=== PATIENT | female | born 1995 | race Caucasian/White ===

== ENCOUNTER 2018-03-16 15:31 | Outpatient (CLI) | payer MEDICAID ==
--- NOTE | 2018-03-16 16:27 | ULT ---
TRANSABDOMINAL PELVIC ULTRASOUND WITH ECHEVARRIA SCALE, COLOR FLOW, AND SPECTRAL DOPPLER IMAGIN03/16/18 HISTORY: Abnormal vaginal bleeding since last year. FINDINGS: The uterus measures 7.4 x 3.6 x 3.6 cm without focal mass or endometrial fluid. The endometrium measu res 8 cm in thickness. The right ovary measures 4 x 2.3 x 1.9 cm and the left ovary measures 3.7 x 2.3 x 2.2 cm. Flow is dem onstrated in both ovaries. No adnexal masses seen. There is a small amount of free fluid in the cul-d e-sac. IMPRESSION: No significant abnormalities are identified. POS: [facility]
== END 2018-03-16 15:32 | disposition home or self-care (01) ==
LOC: BICULT 15:31 → EDSTATUS 16:00
PROVIDERS: ATTEND Family Medicine
DX: N93.9 Abnormal uterine and vaginal bleeding, unspecified (principal)
CPT/HCPCS: 76856; 93976

== ENCOUNTER 2022-10-22 13:49 | Outpatient (CLI) | payer MEDICAID | END 2022-10-22 13:50 | disposition home or self-care (01) | LOC: BICULT 13:49 | PROVIDERS: ATTEND Nurse Practitioner Women's Health | DX: N63.11 Unspecified lump in the right breast, upper outer quadrant (principal) ==